=== PATIENT | female | born 1990 | race Caucasian/White ===

== ENCOUNTER 2020-04-01 17:08 | Emergency (ER) | payer OTHER | END 2020-04-01 18:05 | disposition home or self-care (01) | LOC: FER 17:08 | DX: S91.115A Laceration without foreign body of left lesser toe(s) without damage to nail, initial encounter (principal); W26.8XXA Contact with other sharp object(s), not elsewhere classified, initial encounter; Y92.009 Unspecified place in unspecified non-institutional (private) residence as the place of occurrence of the external cause | CPT/HCPCS: 99283 ==